=== PATIENT | male | born 1990 | race Asian ===

== ENCOUNTER 2024-06-08 16:05 | Emergency (ER) | payer SELFPAY ==
[~2024-06-08] VITALS: Ht 175.3 cm; Wt 110.0 kg
[2024-06-08 16:10] VITALS: BP 132/87; PULSE 76; RESP 16; TEMP 97.6; O2SAT 97
[2024-06-08] MEDS ORDERED: MECLIZINE 25MG TABLET PO ONE (16:45)
== END 2024-06-08 18:05 | disposition left against medical advice (07) ==
LOC: ER 16:05
DX: R42 Dizziness and giddiness (principal); M10.9 Gout, unspecified; E78.00 Pure hypercholesterolemia, unspecified
CPT/HCPCS: 99283